=== PATIENT | female | born 1945 | race Caucasian/White ===

== ENCOUNTER → 2018-04-05 13:00 | Outpatient (CLI) | payer MEDICARE, OTHER, SELFPAY | PROVIDERS: PCP Physician Assistant; Visit Provider Physician Assistant | DX: M85.88 Other specified disorders of bone density and structure, other site (principal) | CPT/HCPCS: 77080 ==

== ENCOUNTER → 2021-04-01 12:31 | Outpatient (CLI) | payer MEDICARE, OTHER, SELFPAY | PROVIDERS: PCP Internal Medicine; Referring Provider Internal Medicine; Visit Provider Internal Medicine | DX: M85.88 Other specified disorders of bone density and structure, other site (principal); Z78.0 Asymptomatic menopausal state; E55.9 Vitamin D deficiency, unspecified | CPT/HCPCS: 77080 ==

== ENCOUNTER 2021-05-29 17:06 | Emergency (ER) | payer MEDICARE, OTHER, SELFPAY ==
[2021-05-29] VITALS (25 sets, daily range): BP systolic 133–186; BP diastolic 71–93; PULSE 66–80; RESP 15–27; TEMP 36.3; O2SAT 94–99; BMI 29.2
--- NOTE | 2021-05-29 17:16 | DI.RAD.S_ITS ---
PROCEDURE: XR CHEST 1V INDICATIONS: chest pain TECHNIQUE: One view of the chest was acquired. COMPARISON: None. FINDINGS: Surgical changes and devices: None definitely seen. Lungs and pleura: An incomplete inspiratory result is noted, causing a crowded appearance to the lung markings. No focal infiltrates are seen. No pneumothorax or significant pleural effusions are seen. Mediastinum: Mediastinal contours appear normal. Heart size is normal. Atherosclerotic calcification of the aortic arch is noted. Bones and chest wall: No suspicious bony lesions. Age-appropriate bony degenerative changes are seen. Mild dextroconvex scoliotic curvature is seen. Overlying soft tissues appear unremarkable. IMPRESSION: Portable chest within normal limits for age. Dictated by: Alvarez Cronin M.D. on 05/29/2021 at 16:43 Approved by: Alvarez Cronin M.D. on 05/29/2021 at 16:44
[2021-05-29 17:40] LABS: Add Manual Diff / Slide Review NO; Basophils Absolute Auto 100 /uL (0-100); Basophils Percent Auto 0.9 % (0-2); Eosinophils Absolute Auto 200 /uL (0-450); Eosinophils Percent Auto 2.7 % (2-4); Hematocrit 32.8 % (36-46); Hemoglobin 10.9 g/dL (12.0-16.0); Lymphocytes Absolute Auto 2600 /uL (1100-4500); Lymphocytes Percent Auto 37.6 % (25-40); Mean Corpuscular HGB Conc 33.3 % (30-36); Mean Corpuscular Hemoglobin 26.8 PG (26-34); Mean Corpuscular Volume 80.4 fL (80-100); Monocytes Absolute Auto 400 /uL (0-900); Monocytes Percent Auto 6.2 % (3-14); Neutrophils Absolute Auto 3600 /uL (1500-7000); Neutrophils Percent Auto 52.6 % (50-75); Platelet Count 295 X10^3/uL (150-400); Red Blood Cell Count 4.08 X10^6/uL (4.0-5.2); Red Cell Distribution Width 17.2 % (11.6-14.8); White Blood Cell Count 6.8 X10^3/uL (4.5-11.0)
[2021-05-29 17:51] LABS: Alanine Aminotransferase 23 IU/L (<35); Albumin Globulin Ratio 1.3 (1.0-2.8); Alkaline Phosphatase 78 U/L (38-126); Aspartate Aminotransferase 29 IU/L (14-36); Bilirubin Total 0.2 mg/dL (0.2-1.3); Blood Urea Nitrogen 17 mg/dL (7-17); Calcium 9.2 mg/dL (8.4-10.2); Carbon Dioxide 25 mmol/L (22-32); Chloride 104 mmol/L (98-107); Creatine Kinase 29 U/L (30-135); Estimated Glomerular Filt Rate > 60.0 mL/min (>60); Globulin 3.1 g/dL (1.7-4.1); Glucose 227 mg/dL (80-110); HEMOLYSIS < 15 (0-50); Lipase 30 U/L (23-300); Potassium 3.8 mmol/L (3.4-5.1); Sodium 137 mmol/L (137-145); Total Protein 7.1 g/dL (6.3-8.2)
[2021-05-29 18:02] LABS: Troponin I 0.072 ng/mL (0.01-0.034)
[2021-05-29] MEDS: ASPIRIN 81 MG CHEW TAB 324 MG PO (18:42)
--- NOTE | 2021-05-29 19:01 | ED_ITS ---
HPI - Chest Pain General Chief Complaint: Chest Pain Stated Complaint: Poss Reaction to Medication or Poss Heart Attack Time Seen by Provider: 05/29/21 18:53 Source: patient Mode of arrival: Ambulatory Limitations: no limitations History of Present Illness HPI narrative: Patient is a relatively healthy 71-year-old female with a history of hypertension is on metoprolol for this. Just recently she was started on at orvastatin. Shortly after starting this medication she had occasional jaw all discomfort. Has been on the right and left side. She has not associated it with anything to include exercise or movement or breathing. Unsure exactly how long it lasts when it does come on. Within the past 24 hours she did have the symptoms when she was out walking. Did improve when she stopped. She is not currently having any symptoms. No chest pain. No shortness of breath. She thought that she was having allergic reaction to the medication as she had read somewhere that it can cause muscle spasms/cramping. When she contacted her primary doctor they informed her that she should come to the emergency dep artment for evaluation. Related Data Home Medications Medication Instructions Recorded Confirmed atorvastatin 10 mg tablet 10 mg PO BEDTIME 05/29/21 05/29/21 cholecalciferol (vitamin D3) 25 1,000 unit PO QAM 05/29/21 05/29/21 mcg (1,000 unit) capsule metoprolol succinate 50 mg 50 mg PO QAM 05/29/21 05/29/21 tablet,extended release 24 hr Allergies Allergy/AdvReac Type Severity Reaction Status Date / Time Sulfa (Sulfonamide Allergy Verified 05/29/21 17:12 Antibiotics) Review of Systems Constitutional Constitutional: Denies fever(s) and Denies headache(s) Eyes Eyes: Denies change in vision ENT Ears, Nose, Mouth, and Throat: Denies headache(s) Comments: Jaw pain Cardiovascular Cardiovascular: Denies chest pain Respiratory Comments: No shortness of breath Gastrointestinal Comments: No abdominal pain nausea vomiting Genitourinary Genitourinary: Reports system reviewed and no additional complaints, except as documented Musculoskeletal Comments: No leg swelling Integumentary/Breasts Skin/Breast: Reports system reviewed and no additional complaints, except as documented Neurologic Neurologic: Denies headache(s) Psychiatric Psychiatric: Reports system reviewed and no additional complaints, except as documented Hematologic/Lymphatic On Anticoagulants: No Allergic/Immunologic Allergic/Immunologic: Reports system reviewed and no additional complaints, except as documented Patient History Medical History Hypertension Social History Smoking Status: Unknown if ever smoked Smoking Status: Unknown if ever smoked alcohol intake frequency: a few times a week Substance Use Type: does not use Exam Initial Vital Signs Initial Vital Signs: Vital Signs Temperature 97.4 F L 05/29/21 17:12 Pulse Rate 79 05/29/21 17:12 Respiratory Rate 15 05/29/21 17:12 Blood Pressure 166/84 H 05/29/21 17:12 Pulse Oximetry 97 05/29/21 17:12 Const General: cooperative and comfortable HENMT Head: normal to inspection and normocephalic Eyes General: appearance normal, both eyes and all related structures Neck Neck: normal visual inspection Chest Chest: normal inspection of the chest and No tenderness Resp Effort & Inspection: normal respiratory effort and not labored Auscultation: clear to auscultation bilaterally Cardio Rate: regular rate Rhythm: regular rhythm GI Inspection: normal to inspection Palpation: soft General: bladder normal to palpation Bimanual Exam- Vagina & Uterus: bladder normal to palpation Skin General: no rashes or lesions noted Neuro General: patient alert, patient awake, patient oriented x3 and moves all extremities Extrem General: normal to inspection, capillary refill normal and No edema Psych Appearance: grossly normal and well kempt Course Orders Ordered: ED Orders 05/29/21 23:25 Troponin & CK Cardiac Panel Stat 05/30/21 02:45 PTT [Partial Thromboplastin Time] Q6H 05/30/21 05:31 Hemoglobin and Hematocrit DAILY Troponin & CK Cardiac Panel Stat 05/30/21 08:45 PTT [Partial Thromboplastin Time] Q6H 05/30/21 14:45 PTT [Partial Thromboplastin Time] Q6H Heparin Sodium/Dextrose (Heparin Drip) 25,000 unit in 500 mls @ 18.507 mls/hr IV CONT MADELINE; Protocol Last Admin: 05/29/21 21:04 Dose: 12 units/kg/hr, 18.507 mls/hr Documented by: GOVIND Discontinued Medications Aspirin (Aspirin 81 Mg Chew Tab) 324 mg PO NOW ONE Stop: 05/29/21 18:18 Last Admin: 05/29/21 18:42 Dose: 324 mg Documented by: MARK Heparin Sodium (Porcine) (Heparin 5,000 Unit/Ml Vial) 4,000 unit IV NOW ONE Stop: 05/29/21 20:38 Last Admin: 05/29/21 21:03 Dose: 4,000 unit Documented by: GOVIND Vital Signs Vital signs: Vital Signs - 8 hr 05/29/21 23:00 05/29/21 23:15 05/29/21 23:30 Pulse Rate 71 76 67 Respiratory Rate 25 H 25 H 20 Blood Pressure 153/82 H 151/74 H Pulse Oximetry 05/29/21 23:45 05/30/21 00:00 05/30/21 00:15 Pulse Rate 66 68 69 Respiratory Rate 21 24 24 Blood Pressure 146/75 H Pulse Oximetry 94 94 91 05/30/21 00:30 05/30/21 00:45 05/30/21 01:00 Pulse Rate 68 69 69 Respiratory Rate 24 29 H Blood Pressure 151/72 H Pulse Oximetry 91 94 91 05/30/21 01:02 05/30/21 01:15 05/30/21 01:30 Pulse Rate 69 69 65 Respiratory Rate 21 23 24 Blood Pressure 140/70 139/71 Pulse Oximetry 95 94 93 05/30/21 01:45 05/30/21 02:00 05/30/21 02:15 Pulse Rate 65 64 66 Respiratory Rate 25 H 24 25 H Blood Pressure 125/65 Pulse Oximetry 94 94 94 05/30/21 02:30 05/30/21 02:31 05/30/21 02:45 Pulse Rate 68 69 75 Respiratory Rate 25 H 21 Blood Pressure 154/71 H Pulse Oximetry 93 93 87 L 05/30/21 03:00 05/30/21 03:15 05/30/21 03:30 Pulse Rate 66 66 66 Respiratory Rate 23 23 Blood Pressure 131/68 137/64 Pulse Oximetry 90 L 92 93 05/30/21 03:45 05/30/21 04:00 05/30/21 04:15 Pulse Rate 71 67 70 Respiratory Rate 23 21 Blood Pressure 135/64 Pulse Oximetry 93 91 88 L 05/30/21 04:30 05/30/21 04:45 05/30/21 05:00 Pulse Rate 68 75 71 Respiratory Rate 22 26 H 24 Blood Pressure 146/68 H 164/77 H Pulse Oximetry 92 94 93 05/30/21 05:15 05/30/21 05:30 05/30/21 05:45 Pulse Rate 70 69 69 Respiratory Rate 24 26 H 24 Blood Pressure 146/72 H Pulse Oximetry 94 92 91 05/30/21 06:00 05/30/21 06:15 05/30/21 06:30 Pulse Rate 70 72 75 Respiratory Rate 23 24 35 H Blood Pressure 142/72 H 183/82 H Pulse Oximetry 91 90 L 96 MDM - Chest Pain Lab Data Attestation: I reviewed the patient's lab results. Result diagrams: 05/30/21 05:31 05/29/21 17:20 Labs: Lab Results 05/29/21 05/29/21 05/29/21 Range/Units 17:20 17:20 19:51 WBC 6.8 (4.5-11.0) X10^3/uL RBC 4.08 (4.0-5.2) X10^6/uL Hgb 10.9 L (12.0-16.0) g/dL Hct 32.8 L (36-46) % MCV 80.4 (80-100) fL MCH 26.8 (26-34) PG MCHC 33.3 (30-36) % RDW 17.2 H (11.6-14.8) % Plt Count 295 (150-400) X10^3/uL Neut % (Auto) 52.6 (50-75) % Lymph % (Auto) 37.6 (25-40) % Cory[place] % (Auto) 6.2 (3-14) % Eos % (Auto) 2.7 (2-4) % Baso % (Auto) 0.9 (0-2) % Neut # (Auto) 3600 (1093-0804) /uL Lymph # (Auto) 2600 (5788-4543) /uL Coryell # (Auto) 400 (0-900) /uL Eos # (Auto) 200 (0-450) /uL Baso # (Auto) 100 (0-100) /uL APTT Sodium 137 (137-145) mmol/L Potassium 3.8 (3.4-5.1) mmol/L Chloride 104 (98-107) mmol/L Carbon Dioxide 25 (22-32) mmol/L BUN 17 (7-17) mg/dL Creatinine 0.63 (0.52-1.04) mg/dL Estimated GFR > 60.0 (>60) mL/min BUN/Creatinine Ratio 27.0 H (6-22) Glucose 227 H (80-110) mg/dL Calcium 9.2 (8.4-10.2) mg/dL Total Bilirubin 0.2 (0.2-1.3) mg/dL AST 29 (14-36) IU/L ALT 23 (<35) IU/L Alkaline Phosphatase 78 (38-126) U/L Total Creatine Kinase 29 L 27 L (30-135) U/L CK-MB (CK-2) TNP TNP CK-MB (CK-2) Rel Index TNP TNP Troponin I 0.072 H 0.092 H (0.01-0.034) ng/mL Total Protein 7.1 (6.3-8.2) g/dL Albumin 4.0 (3.5-5.0) g/dL Globulin 3.1 (1.7-4.1) g/dL Albumin/Globulin Ratio 1.3 (1.0-2.8) Lipase 30 (23-300) U/L SARS-CoV-2 (PCR) (Negative) 05/29/21 05/29/21 05/29/21 Range/Units 20:45 21:25 23:25 WBC (4.5-11.0) X10^3/uL RBC (4.0-5.2) X10^6/uL Hgb 10.6 L (12.0-16.0) g/dL Hct 32.7 L (36-46) % MCV (80-100) fL MCH (26-34) PG MCHC (30-36) % RDW (11.6-14.8) % Plt Count (150-400) X10^3/uL Neut % (Auto) (50-75) % Lymph % (Auto) (25-40) % Coryell % (Auto) (3-14) % Eos % (Auto) (2-4) % Baso % (Auto) (0-2) % Neut # (Auto) (5655-8274) /uL Lymph # (Auto) (9745-8234) /uL Coryell # (Auto) (0-900) /uL Eos # (Auto) (0-450) /uL Baso # (Auto) (0-100) /uL APTT Sodium (137-145) mmol/L Potassium (3.4-5.1) mmol/L Chloride (98-107) mmol/L Carbon Dioxide (22-32) mmol/L BUN (7-17) mg/dL Creatinine (0.52-1.04) mg/dL Estimated GFR (>60) mL/min BUN/Creatinine Ratio (6-22) Glucose (80-110) mg/dL Calcium (8.4-10.2) mg/dL Total Bilirubin (0.2-1.3) mg/dL AST (14-36) IU/L ALT (<35) IU/L Alkaline Phosphatase (38-126) U/L Total Creatine Kinase 25 L (30-135) U/L CK-MB (CK-2) TNP CK-MB (CK-2) Rel Index TNP Troponin I 0.087 H (0.01-0.034) ng/mL Total Protein (6.3-8.2) g/dL Albumin (3.5-5.0) g/dL Globulin (1.7-4.1) g/dL Albumin/Globulin Ratio (1.0-2.8) Lipase (23-300) U/L SARS-CoV-2 (PCR) Negative (Negative) 05/29/21 05/30/21 05/30/21 Range/Units Unknown 02:45 05:31 WBC (4.5-11.0) X10^3/uL RBC (4.0-5.2) X10^6/uL Hgb 9.9 L (12.0-16.0) g/dL Hct 30.4 L (36-46) % MCV (80-100) fL MCH (26-34) PG MCHC (30-36) % RDW (11.6-14.8) % Plt Count (150-400) X10^3/uL Neut % (Auto) (50-75) % Lymph % (Auto) (25-40) % Coryell % (Auto) (3-14) % Eos % (Auto) (2-4) % Baso % (Auto) (0-2) % Neut # (Auto) (4286-6214) /uL Lymph # (Auto) (0037-3159) /uL Coryell # (Auto) (0-900) /uL Eos # (Auto) (0-450) /uL Baso # (Auto) (0-100) /uL APTT Cancelled 81 H* Sodium (137-145) mmol/L Potassium (3.4-5.1) mmol/L Chloride (98-107) mmol/L Carbon Dioxide (22-32) mmol/L BUN (7-17) mg/dL Creatinine (0.52-1.04) mg/dL Estimated GFR (>60) mL/min BUN/Creatinine Ratio (6-22) Glucose (80-110) mg/dL Calcium (8.4-10.2) mg/dL Total Bilirubin (0.2-1.3) mg/dL AST (14-36) IU/L ALT (<35) IU/L Alkaline Phosphatase (38-126) U/L Total Creatine Kinase (30-135) U/L CK-MB (CK-2) CK-MB (CK-2) Rel Index Troponin I (0.01-0.034) ng/mL Total Protein (6.3-8.2) g/dL Albumin (3.5-5.0) g/dL Globulin (1.7-4.1) g/dL Albumin/Globulin Ratio (1.0-2.8) Lipase (23-300) U/L SARS-CoV-2 (PCR) (Negative) 05/30/21 Range/Units 05:31 WBC (4.5-11.0) X10^3/uL RBC (4.0-5.2) X10^6/uL Hgb (12.0-16.0) g/dL Hct (36-46) % MCV (80-100) fL MCH (26-34) PG MCHC (30-36) % RDW (11.6-14.8) % Plt Count (150-400) X10^3/uL Neut % (Auto) (50-75) % Lymph % (Auto) (25-40) % Coryell % (Auto) (3-14) % Eos % (Auto) (2-4) % Baso % (Auto) (0-2) % Neut # (Auto) (2384-3676) /uL Lymph # (Auto) (7278-8893) /uL Coryell # (Auto) (0-900) /uL Eos # (Auto) (0-450) /uL Baso # (Auto) (0-100) /uL APTT Sodium (137-145) mmol/L Potassium (3.4-5.1) mmol/L Chloride (98-107) mmol/L Carbon Dioxide (22-32) mmol/L BUN (7-17) mg/dL Creatinine (0.52-1.04) mg/dL Estimated GFR (>60) mL/min BUN/Creatinine Ratio (6-22) Glucose (80-110) mg/dL Calcium (8.4-10.2) mg/dL Total Bilirubin (0.2-1.3) mg/dL AST (14-36) IU/L ALT (<35) IU/L Alkaline Phosphatase (38-126) U/L Total Creatine Kinase 23 L (30-135) U/L CK-MB (CK-2) TNP CK-MB (CK-2) Rel Index TNP Troponin I 0.072 H (0.01-0.034) ng/mL Total Protein (6.3-8.2) g/dL Albumin (3.5-5.0) g/dL Globulin (1.7-4.1) g/dL Albumin/Globulin Ratio (1.0-2.8) Lipase (23-300) U/L SARS-CoV-2 (PCR) (Negative) Imaging Data Chest x-ray: Radiologist's Impression: [address] [id number] ReportSigned Patient: Lucero Barnes [facility]#: [id number]: 6Acct:[id number]/Sex: 75 / FDate of Service: 05/29/21Loc: EDAccession Number: [id number] Procedure: XR chest 1V Ordering Provider: Natividad Hagen MD PROCEDURE: XR CHEST 1V INDICATIONS: chest pain TECHNIQUE: One view of the chest was acquired. COMPARISON: None. FINDINGS: Surgical changes and devices: None definitely seen. Lungs and pleura: An incomplete inspiratory result is noted, causing a crowded appearance to the lung markings. No focal infiltrates are seen. No pneumothorax or significant pleural effusions are seen. Mediastinum: Mediastinal contours appear normal. Heart size is normal. Atherosclerotic calcification of the aortic arch is noted. Bones and chest wall: No suspicious bony lesions. Age-appropriate bony degenerative changes are seen. Mild dextroconvex scoliotic curvature is seen. Overlying soft tissues appear unremarkable. IMPRESSION: Portable chest within normal limits for age. Dictated by: Alvarez Cronin M.D. on 05/29/2021 at 16:43 Approved by: Alvarez Cronin M.D. on 05/29/2021 at 16:44 ECG Data Attestation: I personally reviewed and interpreted this ECG as follows: Interpretation: Sinus rhythm Ventricular rate is 78 Normal axis Normal QRS Normal QTC No ST T wave changes MDM Narrative Medical decision making narrative: Patient has never had chest pain or shortness of breath. She has a unremarkable/nonischemic EKG. Chest x-ray is unremarkable. Her presenting symptoms were jaw all discomfort. I do have low suspicion that this is a muscle spasm nor an allergic reaction to her medication. Her initial troponin is above the 99th percentile. Repeat troponin is higher than the initial. I did discuss the case with Dr. horowitz with Cardiology who recommended that the patient be placed on heparin and be transferred for further evaluation and treatment to include a cardiac c atheterization. Patient was given aspirin and started on heparin. Patient remained in the emergency department overnight due to availability at receiving facility. Discussed the case with Dr Weems for Dr. Torrez with Internal Medicine who accepts the patient for transport. Patient is stable for transfer. Critical Care Time Critical Care Time Critical Care Time: Yes Total Critical Care Time: 35 Attestation: The high probability of a clinically significant, sudden or life threatening deterioration of the cardiovascular system(s) required my full and direct attention, intervention and personal management. The aggregate critical care time was 35 minutes. This time is in addition to time spent performing reported procedures but includes the following: [x] Data Review and interpretation [x] Patient assessment and monitoring of vital signs [x] Documentation [x] Medication orders and management Discharge Plan Departure Patient Disposition: [facility] Clinical Impression: Unstable angina Prescriptions: No Action atorvastatin 10 mg tablet 10 mg PO BEDTIME RF: 0 metoprolol succinate 50 mg tablet extended release 24 hr 50 mg PO QAM RF: 0 cholecalciferol (vitamin D3) 25 mcg (1,000 unit) Capsule 1,000 unit PO QAM RF: 0 Referrals: Leia José ARNP [Primary Care Provider] -
[2021-05-29 20:09] LABS: Creatine Kinase 27 U/L (30-135)
[2021-05-29 20:22] LABS: Troponin I 0.092 ng/mL (0.01-0.034)
[2021-05-29] MEDS: HEPARIN 5,000 UNIT/ML VIAL 4000 UNIT IV (21:03)
[2021-05-29] MEDS: HEPARIN DRIP 25,000 UNIT/500 ML IV.SOLN 18.507 UNIT IV (21:04)
[2021-05-29 21:38] LABS: Hematocrit 32.7 % (36-46); Hemoglobin 10.6 g/dL (12.0-16.0)
[2021-05-29 21:49] LABS: COVID19 - ADMIT (NP swab/PCR) Negative (Negative)
--- NOTE | 2021-05-29 21:58 | PC.NURSE ---
lab called w/ PTT > 400. Discussed with Dr. Minaya that PTT was drawn almost immediately after bolus was given. Decision made to wait for 6 hour ptt to adjust heparin as expected result right after bolus would be dramatically high PTT. Pt has no s/s of bleeding.
[2021-05-29 23:39] LABS: Creatine Kinase 25 U/L (30-135)
[2021-05-29 23:52] LABS: Troponin I 0.087 ng/mL (0.01-0.034)
[2021-05-30] VITALS (30 sets, daily range): BP systolic 125–183; BP diastolic 64–82; PULSE 64–83; RESP 20–29; O2SAT 87–96
[2021-05-30 03:18] LABS: PTT Partial Thromboplastin Tim 81 SECONDS (26.4-36.2)
--- NOTE | 2021-05-30 03:34 | PC.NURSE ---
After noting PTT result,heparin gtt was decreased 1 ml per hour to 17ml per hour per protocol.
[2021-05-30 05:37] LABS: Hematocrit 30.4 % (36-46); Hemoglobin 9.9 g/dL (12.0-16.0)
[2021-05-30 05:48] LABS: Creatine Kinase 23 U/L (30-135)
[2021-05-30 06:01] LABS: Troponin I 0.072 ng/mL (0.01-0.034)
== END 2021-05-30 07:24 | disposition short-term general hospital (02) ==
PROVIDERS: Emergency Medicine; Emergency Provider Emergency Medicine; PCP Internal Medicine
DX: I21.4 Non-ST elevation (NSTEMI) myocardial infarction (principal); R07.9 Chest pain, unspecified; Z20.822 Contact with and (suspected) exposure to COVID-19
CPT/HCPCS: 36415; 71045; 80053; 82550; 83690; 84484; 85014; 85018; 85025; 85730; 87635; 93005; 93010; 96365; 96366; 96375; 99285; 99291; C9803; J1644

== ENCOUNTER → 2021-12-16 11:30 | Outpatient (CLI) | payer MEDICARE, OTHER, SELFPAY ==
[2021-12-16 14:22] LABS: COVID19 -Nasal RAPID Negative (Negative)
== END ==
PROVIDERS: PCP Internal Medicine; Visit Provider Family Medicine Sleep Medicine
DX: Z20.822 Contact with and (suspected) exposure to COVID-19 (principal)
CPT/HCPCS: 87635; C9803

== ENCOUNTER → 2021-12-17 09:15 | Outpatient (CLI) | payer MEDICARE, OTHER, SELFPAY ==
--- NOTE | 2021-12-17 | DI.NM.S_ITS ---
PROCEDURE: NM JESUS PERF SPECT REST & STR Rest and exercise myocardial perfusion SPECT with gated imaging and ejection fraction RADIOPHARMACEUTICAL: 11.5 mCi Tc-99m sestamibi IV at rest and 24.8 mCi Tc-99m sestamibi IV at peak exercise. A [id number] was performed. INDICATIONS: Non-ST elevation (NSTEMI) myocardial infarction TECHNIQUE: Radiopharmaceutical was injected at peak stress test, and also at rest. SPECT images were obtained. SPECT myocardial perfusion images were displayed in short axis, horizontal long axis, and vertical long axis views. Gated images were reviewed using [employer] software. COMPARISON: None. CARDIAC STRESS: A standard Giovani treadmill exercise tolerance test was performed by the patient under the supervision of an attending staff. The patient exercised for 6 minutes and 0 seconds; 7.0 METS; functional aerobic impairment (VICTORIA) is -13%. Hemodynamic data: There is normal blood pressure and heart rate response to exercise stress. Patient achieved 98% of maximum predicted heart rate at peak exercise. Maximum blood pressure 152/80. Symptoms: Patient denied chest pain during exercise. EKG: Sinus tachycardia, [address] segment depressions V3 through V6; no ectopy. FINDINGS: Raw data: There is good myocardial labeling by radiotracer. No significant motion artifacts. Sljd-al-[id number] ratio is 0.41 (normal is less than 0.38 for sestamibi tracer, and less than 0.50 for thallium tracer). Left ventricle function: Gated images demonstrate normal left ventricle wall thickening. No segmental wall motion abnormality. No transient ischemic dilation; TID is 0.45 (normal less than 1.3). The left ventricle resting end-diastolic volume is 52 mL. Left ventricle stress ejection fraction is >75%; normal values are above 45%. Myocardial perfusion: There is normal distribution of activity in the left and right ventricular myocardium. No fixed or reversible perfusion defects. IMPRESSION: 1. No evidence of exercise-induced ischemia or scar on SPECT images. 2. Abnormal exercise ECG, likely false positive given normal perfusion on imaging. 3. Good exercise capacity. 4. Normal blood pressure response to exercise. Dictated by: Agnes Vasquez D.O. on 12/17/2021 at 16:27 Approved by: Agnes Vasquez M.D. on 12/17/2021 at 16:32
== END ==
PROVIDERS: PCP Internal Medicine; Referring Provider Internal Medicine Cardiovascular Disease; Visit Provider Nurse Practitioner Acute Care
DX: I21.4 Non-ST elevation (NSTEMI) myocardial infarction (principal)
CPT/HCPCS: 78452; 93017; A9502